=== PATIENT | female | born 1975 | race African-American/Black ===

== ENCOUNTER 2019-03-13 21:34 | Emergency (ER) | payer BC, MEDICAID, OTHER ==
[~2019-03-13] VITALS: Ht 170.2 cm; Wt 94.8 kg
--- NOTE | 2019-03-13 22:09 | NUR ---
AFSHAN RUBIN AT BEDSIDE TO YULIYA DEMARCO.
[2019-03-13] MEDS ORDERED: AMLODIPINE BESYLATE 5 MG TABLET PO ONE (22:30)
[2019-03-13] MEDS ORDERED: AMLODIPINE BESYLATE 5 MG TABLET ONE (22:35)
--- NOTE | 2019-03-13 22:39 | NUR ---
PT AMBULATORY TO THE BATHROOM WITH STEADY GAIT NOTED.
[2019-03-13 23:06] VITALS: BP 146/92
== END 2019-03-13 23:07 | disposition home or self-care (01) ==
LOC: ER 21:34
DX: I10 Essential (primary) hypertension (principal); Z88.8 Allergy status to other drugs, medicaments and biological substances; Z79.899 Other long term (current) drug therapy

== ENCOUNTER 2019-05-26 05:53 | Emergency (ER) | payer BC ==
[~2019-05-26] VITALS: Ht 170.2 cm; Wt 96.6 kg
--- NOTE | 2019-05-26 06:00 | NUR ---
PT BIBSELF C/O MIGRAINE X5 DAYS. +N/-V, +NECK PAIN, +PHOTOPHOBIA, -DIZZINESS. 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 HX OF MIGRAINES. PT AOX4. RESP EVEN AND UNLABORED. PT ON MONITOR IN BED 9. WILL CONTINUE TO MONITOR.
--- NOTE | 2019-05-26 06:19 | NUR ---
RAC20G INITIATED. PT TOLERATED WELL.
[2019-05-26] MEDS ORDERED: METOCLOPRAMIDE HCL 10 MG/2 ML VIAL ONE (06:21)
[2019-05-26] MEDS ORDERED: diphenhydrAMINE HCL 50 MG/ML VIAL ONE (06:21)
[2019-05-26] MEDS ORDERED: KETOROLAC TROMETHAMINE INJ 30 MG/ML VIAL ONE (06:21)
[2019-05-26] MEDS ORDERED: diphenhydrAMINE HCL 50 MG/ML VIAL IV ONE (06:30)
[2019-05-26] MEDS ORDERED: METOCLOPRAMIDE HCL 10 MG/2 ML VIAL IV ONE (06:30)
[2019-05-26] MEDS ORDERED: IV NS 0.9% 1,000 ML BAG IV ONE (06:30)
[2019-05-26] MEDS ORDERED: SUMATRIPTAN SUCCINATE 6 MG/0.5 ML VIAL SQ ONE (06:30)
[2019-05-26] MEDS ORDERED: KETOROLAC TROMETHAMINE INJ 30 MG/ML VIAL IV ONE (06:30)
--- NOTE | 2019-05-26 07:12 | NUR ---
RECEIVED REPORT FROM TIFFANI LINDSEY FOR LEIF, PT IS AAOX4, NOT IN RESPIRATORY DISTRESS, V/S STABLE, KEPT RESTED AND COMFORTABLE, WILL CONTINUE TO MONITOR.
--- NOTE | 2019-05-26 07:44 | NUR ---
IV removed. Catheter intact and site benign. Pressure and 4x4 applied to site. No bleeding noted. Patient discharged to home in stable condition. Written and verbal after care instructions given. Patient verbalizes understanding of instruction.
[2019-05-26 07:45] VITALS: BP 144/81
== END 2019-05-26 07:45 | disposition home or self-care (01) ==
LOC: ER 05:54
DX: R51 Headache (principal); Z88.8 Allergy status to other drugs, medicaments and biological substances
CPT/HCPCS: 96374; 96375; 99283; J1200; J1885; J2765; J7030 ×2

== ENCOUNTER 2019-10-22 18:32 | Emergency (ER) | payer BC ==
[~2019-10-22] VITALS: Ht 157.5 cm; Wt 96.6 kg
--- NOTE | 2019-10-22 18:32 | NUR ---
PT PLACED IN ISOLATION IN PERSONAL CAR. CASSANDRA LEAK PATCHER WITH PATIENT FOR MEDICAL EVALUATION
[2019-10-22 18:49] VITALS: BP 157/114
--- NOTE | 2019-10-22 19:55 | NUR ---
PT WAS GIVEN D/C PAPERWORK BY EVA, GIVEN IN CAR, PRECAUTIONS OBSERVED, D/C TEACHING BY CASSANDRA OVER THE PHONE.
== END 2019-10-22 19:59 | disposition home or self-care (01) ==
LOC: ER 18:34
DX: Z20.828 Contact with and (suspected) exposure to other viral communicable diseases (principal); Z88.8 Allergy status to other drugs, medicaments and biological substances